=== PATIENT | female | born 1995 | race Caucasian/White ===

== ENCOUNTER 2016-08-20 03:45 | Emergency (ER) | payer OTHER ==
--- NOTE | 2016-08-20 05:44 | ED NURSING NOTES ---
Clinical Report - Nurses [facility] [place] [address] 08/20/2016 3:45 Patient: ANIL GUPTA TRIAGE Triage time 03:54 Aug 20 2016. Acuity: LEVEL 3. Chief Complaint: (Headache, abdominal pain). SEPSIS SCREEN: Sepsis Screen: negative. Negative (no infection suspected/documented). DAXA COMA SCORE: Daxa Coma Scale: 15- eyes open spontaneously (4); best verbal response- oriented x 4 (5); best motor response- obeys commands (6). --03:59 Yara Johnston 03:54 08/20/16. BP: 120/81. HR: 75. RR: 20. O2 saturation: 100% on room air. Temp: 98.7 F (oral). Pain level now: 12/03. --03:59 Yara Johnston. Weight: 61.2 kg stated. Height/Length: 62 inches Per Patient. BMI: 24.7. --03:56 Yara Johnston. Medications None. --03:57 Yara Johnston. Allergies No Known Drug Allergy. --03:57 Yara Johnston. Medication/allergy information source: the patient. --03:59 Yara Johnston. History Arrived by private vehicle. Historian: patient. Accompanied by family. Primary physician (none). Onset. (1 months). ( Patient reports headache for about three weeks. She reports a history of headaches. She reports she has not seen a doctor about it. She states that yesterday she began having abdominal pain. She states she has a family history of serious health problems including stroke and heart failure.). PAST MEDICAL HX: Immunizations: status is unknown. Last normal menstrual period- Spotting earlier this month. Sexual history - sexually active. Uses condoms. SOCIAL HX: Heavy tobacco smoker (cigarette)- 1 pack per day. History of drug use: marijuana. No alcohol use. No infectious disease exposure. ABUSE ASSESSMENT: No report of abuse. SELF HARM ASSESSMENT: A self harm assessment was performed. The patient answered "no" to the question "Have you recently felt down, depressed, or hopeless?", "Have you noticed less interest or pleasure in doing things?", "Do you have thoughts of harming or killing yourself?", "Are you here because you tried to hurt yourself?", "Have you ever tried to hurt yourself before today?", "Have you recently had thoughts about harming or killing others?" and "Do you have any dangerous items in your possession?". FALL RISK ASSESSMENT: Fall risk assessment completed. No fall risk identified. NUTRITIONAL RISK ASSESSMENT: The nutritional risk assessment revealed no deficiencies. FUNCTIONAL ASSESSMENT: Functional assessment: no impairments noted. LEARNING NEEDS ASSESSMENT: The learning needs assessment revealed no barriers. SKIN INTEGRITY ASSESSMENT: Skin integrity risk assessment completed. No skin integrity risk identified. --03:59 Yara Johnston. PROBLEMS: Lymphadenitis. Cervical Strain. Allergic Reaction. --03:57 Yara Johnston. ADDITIONAL SURGERIES: no known surgeries. Interventions ID band on patient. To treatment room. --03:59 Yara Johnston. PHYSICAL ASSESSMENT Ambulatory to room. Patient gowned. GENERAL / NEURO / PSYCH: Alert. Oriented X 4. Appears in no acute distress. HEENT: Pupils equal, round and reactive to light. No facial asymmetry noted. Mucous membranes are pink. RESPIRATORY: Respirations not labored. CVS: Normal sinus rhythm noted. GI / : Abdominal tenderness in the lower abdomen. SKIN: Skin is warm and dry. --03:59 Yara Johnston. NURSING PROGRESS NOTES Pulse oximeter and NIBP monitor placed on patient; monitor alarms on. Patient gowned. Warming measures: blanket applied. Reassurance given to the patient. Lights dimmed. Two patient identifiers checked. Call light placed in reach. Side rails up x 1. Bed placed in lowest position. Brakes of bed on. Patient ready for evaluation- chart flagged. --04:00 Yara Johnston 04:28 08/20/2016 Site #1 started via IV in the right antecubital space with an 20g angiocath, with aseptic technique and good blood return; one attempt. Blood drawn: rainbow set. Labeled in the presence of the patient and sent to the lab. Saline lock flushed with 10 mL saline. --04:33 Yara Johnston 04:33 08/20/2016 Started bag #1 1000 mL IV Fluids IV NS (Saline); at 1000 mL/hr over 1 hour(s) via site #1. Allergies verified and confirmed 5 rights. IV patency established. IV site checked: no pain, redness, or swelling. IV flushed thoroughly pre- and post-medication administration. --04:33 Yara Johnston 04:34 08/20/2016 Toradol IVP 30 mg given over 1 minute(s) via site #1. Allergies verified and confirmed 5 rights. IV patency established. IV site checked: no pain, redness, or swelling. IV flushed thoroughly pre- and post-medication administration. IVP given by RN. --04: Yara Johnston Patient ID band checked for patient name and birthdate: patient confirmed. Instructions provided to collect clean catch urine and patient verbalized understanding. Clean catch urine collected with return of yellow-colored clear urine; sample sent to lab for urinalysis. Specimen labeled in the presence of the patient. --05:08 Yara Johnston 06:03 08/20/2016 IV Fluids IV NS Discontinued: bag #1 completed upon discharge. Total amount infused: 1000 mL. IV patency established. IV site checked: no pain, redness, or swelling. IV flushed thoroughly. --06:08 Yara Johnston. DISPOSITION / DISCHARGE 06:02 08/20/16. BP: 111/74. HR: 66. RR: 20. O2 saturation: 100% on room air. Temp: deferred. Pain level now: 09/02. --06:03 Yara Johnston 05:58 08/20/2016 Site #1 removed upon discharge. Catheter intact. Bandaid applied. --06:03 Yara Johnston 06:03 08/20/16. Condition at departure: improved and stable. No learning barriers present. Discharge instructions provided and reviewed with the patient. Reviewed medication(s) side effects, precautions, dosing and course information. Prescription(s) given to the patient. Reviewed need for increased fluid intake. Patient verbalized understanding. Written instructions provided in Setswana. ( Follow up with a primary care doctor in three days, [facility] contact information provided. Return if symptoms worsen.). The patient was discharged by the physician. She was discharged home and accompanied by surgical specialist. She left the Emergency Department ambulatory and via private vehicle. Family Services Worker driving. --06:03 Yara Johnston. Locked/Released at 08/20/2016 6:44 by Yara Johnston,
--- NOTE | 2016-08-20 05:44 | ED ORDER SUMMARY ---
..... Patient: ANIL GUPTA OrderSheet [facility] VisitID: [id number] [address] [place] [address] 21y, F Registration Date/Time: 08/20/2016 ORDER SHEET Weight: 61.2 kg (stated) Allergies: No Known Drug Allergy GENERAL ORDERS: CBC w Diff Urgent (04:08/20/2016 Paul Suacedo) (Ack 4:19 IJurca ER Tech1) (5:36 HSoule) CMP Urgent (04:08/20/2016 Paul Saucedo) (Ack 4:19 IJurca ER Tech1) (5:36 HSoule) UA-Culture if indicated Urgent (04:08/20/2016 Paul Saucedo) (Ack 4:19 IJurca ER Tech1) (5:36 HSoule) Amylase Urgent (04:08/20/2016 Paul Saucedo) (Ack 4:19 IJurca ER Tech1) (5:36 HSoule) Lipase Urgent (04:08/20/2016 Paul Saucedo) (Ack 4:19 IJurca ER Tech1) (5:36 HSoule) Urine Urgent (04:08/20/2016 Paul Saucedo) (Ack 4:19 IJurca ER Tech1) (5:36 HSoule) MEDICATION ORDERS: IV FLUIDS: IV NS : initial bolus none -, then 1000 mL/hr for X1 (NOW) (04:08/20/2016 Paul Saucedo) (Ack 4:20 HSoule) (4:33 HSoule) Toradol IV 30 mg (NOW) (04:08/20/2016 Paul Saucedo) (Ack 4:20 HSoule) (4:34 HSoule) ORDER SHEET NOTES: This document has not been locked and should not be saved in the medical record.
--- NOTE | 2016-08-20 05:44 | ED CLINICAL REPORT ---
Clinical Report - Physicians/Mid Levels [facility] [address] [place] [address] 08/20/2016 3:45 Patient: ANIL GUPTA *This is a preliminary document and is subject to change Time Seen: 04:02; initial patient contact. Arrived- By private vehicle. Historian- patient. HISTORY OF PRESENT ILLNESS Is still present. Chief Complaint: HEADACHE. This started about 1 month ago. It was gradual in onset and has been intermittent. Onset during light activity. It is described as similar to previous headaches and throbbing. Located in the frontal and occipital region. No neck pain. Not located in the facial region. At its maximum, severity described as mild. When seen in the E.D., severity described as mild. Modifying factors: worsened by moving head; relieved by nothing. No preceding symptoms, blurred vision, photophobia, associated nausea or numbness. No weakness or vomiting. No recent travel. Similar symptoms previously: Many times. Recent medical care: Not recently seen/assessed. REVIEW OF SYSTEMS No fever, sinus pressure, diarrhea or skin rash. She has had abdominal pain. All systems otherwise negative, except as recorded above. PAST HISTORY Lymphadenitis. Cervical Strain. Allergic Reaction. SOCIAL HISTORY Current every day smoker. History of drug use: marijuana. No alcohol use. ADDITIONAL NOTES The nursing notes have been reviewed with agreement regarding the chief complaint, PMH and patient medications and allergies. PHYSICAL EXAM Vital Signs: 08/20/2016 03:54 BP: 120/81. HR: 75. RR: 20. O2 saturation: 100%. Temp: 98.7 F. Pain level now: 6/10. Have been reviewed as normal. Appearance: Alert. No acute distress. Eyes: Pupils equal, round and reactive to light. Eyes normal inspection. No photophobia. ENT: Dry mucous membranes present. Neck: Normal inspection. Neck supple. No meningeal signs. CVS: Normal heart rate and rhythm. Heart sounds normal. Respiratory: No respiratory distress. Breath sounds normal. Abdomen: Soft. Mild tenderness in the periumbilical area and right lower quadrant. No guarding, rebound tenderness or Isabel's, obturator or psoas sign present. No organomegaly. Back: Normal inspection. No CVA tenderness. Skin: Normal skin color. No rash. Extremities: No lower extremity edema. Neuro: Oriented X 3. Alert. LABS, X-RAYS, AND EKG Laboratory Tests: UA-Culture if indicated: (KACEY: 08/20/2016 05:00) ( [facility] 08/20/2016 05:30) Final results Test Result Flag Units (Reference) URINE COLOR YELLOW URINE APPEARANCE CLEAR URINE GLUCOSE NEGATIVE (NEGATIVE) URINE BILIRUBIN NEGATIVE (NEGATIVE) URINE KETONE 2+ (NEGATIVE) URINE SPECIFIC GRAVITY 1.015 (1.010-1.030) URINE PH 6.0 (5.0-8.0) URINE PROTEIN NEGATIVE (NEGATIVE) URINE UROBILINOGEN 0.2 EU/dL (0.2-1.0) URINE NITRITE NEGATIVE (NEGATIVE) URINE BLOOD TRACE-INTACT (NEGATIVE) URINE LEUK ESTERASE NEGATIVE (NEGATIVE) URINE RBC 0-1 rbc/hpf (0-1) URINE WBC 0-1 wbc/hpf (0-1) URINE EPITHELIAL CELLS 1-3 EPI/hpf (0-5) URINE BACTERIA TRACE (<1+) (NONE SEEN) URINE COMMENT CULT NOT INDICATED URINE CULTURES ARE SET-UP BASED ON THE FOLLOWING CRITERIA:POSITIVE NITRITEPOSITIVE LEUKOCYTE ESTERASEGREATER THAN 10 WHITE BLOOD CELLSMODERATE (2+) OR GREATER BACTERIA Urine: (KACEY: 08/20/2016 05:00) ( [facility] 08/20/2016 05:18) Final results Test Result Flag Units (Reference) URINE NEGATIVE CBC w Diff: (KACEY: 08/20/2016 04:30) ( [facility] 08/20/2016 05:12) Final results Test Result Flag Units (Reference) WHITE BLOOD COUNT 7.5 K/uL (4.5-11.5) RED BLOOD COUNT 3.93 L M/uL (4.00-5.20) HEMOGLOBIN 11.2 L gm/dL (12.0-16.0) HEMATOCRIT 34.1 L % (36.0-46.0) MEAN CELL VOLUME 87 fL (80-100) MEAN CORPUSCULAR HGB 29 pg (26-34) MEAN CORPUSCULAR HGB CONC 33 g/dL (31-37) RED CELL DISTRIBUTION WIDTH 14.2 % (11.6-14.8) PLATELET COUNT 125 L K/uL (150-400) NEUTROPHIL % 56.4 % (50-75) LYMPH % 33.1 % (25-40) MONO % 6.8 % (3-14) EOSINOPHIL % 3.3 % (0-4) BASOPHIL % 0.4 % (0-2) CMP: (KACEY: 08/20/2016 04:30) ( MsgRcvd 08/20/2016 05:22) Final results Test Result Flag Units (Reference) GLUCOSE 81 mg/dL (70-110) BUN 18 mg/dL (7-18) CREATININE 0.8 mg/dL (0.6-1.3) Estimated GFR >60 mL/min Estimated GFR- >60 mL/min Note: Persistent reduction over 3 months in eGFR<60 mL/min/1.73 m2 defines CKD. Patients with eGFR values>=60 mL/min/1.73 m2 may also have CKD if evidence ofpersistent proteinuria. Additional information may be foundat www.kidney.org. SODIUM 141 mmol/L (136-145) POTASSIUM 3.5 mmol/L (3.5-5.1) CHLORIDE 105 mmol/L (98-107) CARBON DIOXIDE 24 mmol/L (21-32) CALCIUM 8.9 mg/dL (8.5-10.1) TOTAL PROTEIN 7.3 g/dL (6.4-8.2) ALBUMIN 3.8 g/dL (3.3-5.0) BILIRUBIN, TOTAL 0.6 mg/dL (0.0-1.0) ALKALINE PHOSPHATASE 63 U/L (46-116) AST (SGOT) 13 L U/L (15-37) ALT (SGPT) 16 U/L (12-78) LIPASE 170 U/L (73-393) AMYLASE 65 U/L (25-115) . [address]
--- NOTE | 2016-08-20 05:44 | ED CLINICAL REPORT ---
Clinical Report - Physicians/Mid Levels [facility] [address] [place] [address] 08/20/2016 3:45 Patient: ANIL GUPTA *This is a preliminary document and is subject to change Time Seen: 04:02; initial patient contact. Arrived- By private vehicle. Historian- patient. HISTORY OF PRESENT ILLNESS Is still present. Chief Complaint: HEADACHE. This started about 1 month ago. It was gradual in onset and has been intermittent. Onset during light activity. It is described as similar to previous headaches and throbbing. Located in the frontal and occipital region. No neck pain. Not located in the facial region. At its maximum, severity described as mild. When seen in the E.D., severity described as mild. Modifying factors: worsened by moving head; relieved by nothing. No preceding symptoms, blurred vision, photophobia, associated nausea or numbness. No weakness or vomiting. No recent travel. Similar symptoms previously: Many times. Recent medical care: Not recently seen/assessed. REVIEW OF SYSTEMS No fever, sinus pressure, diarrhea or skin rash. She has had abdominal pain. All systems otherwise negative, except as recorded above. PAST HISTORY Lymphadenitis. Cervical Strain. Allergic Reaction. SOCIAL HISTORY Current every day smoker. History of drug use: marijuana. No alcohol use. ADDITIONAL NOTES The nursing notes have been reviewed with agreement regarding the chief complaint, PMH and patient medications and allergies. PHYSICAL EXAM Vital Signs: 08/20/2016 03:54 BP: 120/81. HR: 75. RR: 20. O2 saturation: 100%. Temp: 98.7 F. Pain level now: 6/10. Have been reviewed as normal. Appearance: Alert. No acute distress. Eyes: Pupils equal, round and reactive to light. Eyes normal inspection. No photophobia. ENT: Dry mucous membranes present. Neck: Normal inspection. Neck supple. No meningeal signs. CVS: Normal heart rate and rhythm. Heart sounds normal. Respiratory: No respiratory distress. Breath sounds normal. Abdomen: Soft. Mild tenderness in the periumbilical area and right lower quadrant. No guarding, rebound tenderness or Isabel's, obturator or psoas sign present. No organomegaly. Back: Normal inspection. No CVA tenderness. Skin: Normal skin color. No rash. Extremities: No lower extremity edema. Neuro: Oriented X 3. Alert. LABS, X-RAYS, AND EKG Laboratory Tests: UA-Culture if indicated: (KACEY: 08/20/2016 05:00) ( [facility] 08/20/2016 05:30) Final results Test Result Flag Units (Reference) URINE COLOR YELLOW URINE APPEARANCE CLEAR URINE GLUCOSE NEGATIVE (NEGATIVE) URINE BILIRUBIN NEGATIVE (NEGATIVE) URINE KETONE 2+ (NEGATIVE) URINE SPECIFIC GRAVITY 1.015 (1.010-1.030) URINE PH 6.0 (5.0-8.0) URINE PROTEIN NEGATIVE (NEGATIVE) URINE UROBILINOGEN 0.2 EU/dL (0.2-1.0) URINE NITRITE NEGATIVE (NEGATIVE) URINE BLOOD TRACE-INTACT (NEGATIVE) URINE LEUK ESTERASE NEGATIVE (NEGATIVE) URINE RBC 0-1 rbc/hpf (0-1) URINE WBC 0-1 wbc/hpf (0-1) URINE EPITHELIAL CELLS 1-3 EPI/hpf (0-5) URINE BACTERIA TRACE (<1+) (NONE SEEN) URINE COMMENT CULT NOT INDICATED URINE CULTURES ARE SET-UP BASED ON THE FOLLOWING CRITERIA:POSITIVE NITRITEPOSITIVE LEUKOCYTE ESTERASEGREATER THAN 10 WHITE BLOOD CELLSMODERATE (2+) OR GREATER BACTERIA Urine: (KACEY: 08/20/2016 05:00) ( [facility] 08/20/2016 05:18) Final results Test Result Flag Units (Reference) URINE NEGATIVE CBC w Diff: (KACEY: 08/20/2016 04:30) ( [facility] 08/20/2016 05:12) Final results Test Result Flag Units (Reference) WHITE BLOOD COUNT 7.5 K/uL (4.5-11.5) RED BLOOD COUNT 3.93 L M/uL (4.00-5.20) HEMOGLOBIN 11.2 L gm/dL (12.0-16.0) HEMATOCRIT 34.1 L % (36.0-46.0) MEAN CELL VOLUME 87 fL (80-100) MEAN CORPUSCULAR HGB 29 pg (26-34) MEAN CORPUSCULAR HGB CONC 33 g/dL (31-37) RED CELL DISTRIBUTION WIDTH 14.2 % (11.6-14.8) PLATELET COUNT 125 L K/uL (150-400) NEUTROPHIL % 56.4 % (50-75) LYMPH % 33.1 % (25-40) MONO % 6.8 % (3-14) EOSINOPHIL % 3.3 % (0-4) BASOPHIL % 0.4 % (0-2) CMP: (KACEY: 08/20/2016 04:30) ( MsgRcvd 08/20/2016 05:22) Final results Test Result Flag Units (Reference) GLUCOSE 81 mg/dL (70-110) BUN 18 mg/dL (7-18) CREATININE 0.8 mg/dL (0.6-1.3) Estimated GFR >60 mL/min Estimated GFR- >60 mL/min Note: Persistent reduction over 3 months in eGFR<60 mL/min/1.73 m2 defines CKD. Patients with eGFR values>=60 mL/min/1.73 m2 may also have CKD if evidence ofpersistent proteinuria. Additional information may be foundat www.kidney.org. SODIUM 141 mmol/L (136-145) POTASSIUM 3.5 mmol/L (3.5-5.1) CHLORIDE 105 mmol/L (98-107) CARBON DIOXIDE 24 mmol/L (21-32) CALCIUM 8.9 mg/dL (8.5-10.1) TOTAL PROTEIN 7.3 g/dL (6.4-8.2) ALBUMIN 3.8 g/dL (3.3-5.0) BILIRUBIN, TOTAL 0.6 mg/dL (0.0-1.0) ALKALINE PHOSPHATASE 63 U/L (46-116) AST (SGOT) 13 L U/L (15-37) ALT (SGPT) 16 U/L (12-78) LIPASE 170 U/L (73-393) AMYLASE 65 U/L (25-115) . [address]
--- NOTE | 2016-08-20 05:44 | ED ORDER SUMMARY ---
..... Patient: ANIL GUPTA OrderSheet [facility] VisitID: [id number] [address] [place] [address] 21y, F Registration Date/Time: 08/20/2016 ORDER SHEET Weight: 61.2 kg (stated) Allergies: No Known Drug Allergy GENERAL ORDERS: CBC w Diff Urgent (04:08/20/2016 Paul Saucedo) (Ack 4:19 IJurca ER Tech1) (5:36 HSoule) CMP Urgent (04:08/20/2016 Paul aSucedo) (Ack 4:19 IJurca ER Tech1) (5:36 HSoule) UA-Culture if indicated Urgent (04:08/20/2016 Paul Saucedo) (Ack 4:19 IJurca ER Tech1) (5:36 HSoule) Amylase Urgent (04:08/20/2016 Paul Saucedo) (Ack 4:19 IJurca ER Tech1) (5:36 HSoule) Lipase Urgent (04:08/20/2016 Paul Saucedo) (Ack 4:19 IJurca ER Tech1) (5:36 HSoule) Urine Urgent (04:08/20/2016 Paul Saucedo) (Ack 4:19 IJurca ER Tech1) (5:36 HSoule) MEDICATION ORDERS: IV FLUIDS: IV NS : initial bolus none -, then 1000 mL/hr for X1 (NOW) (04:08/20/2016 Paul Saucedo) (Ack 4:20 HSoule) (4:33 HSoule) Toradol IV 30 mg (NOW) (04:08/20/2016 Paul Saucedo) (Ack 4:20 HSoule) (4:34 HSoule) ORDER SHEET NOTES: This document has not been locked and should not be saved in the medical record.
--- NOTE | 2016-08-23 22:19 | ED MAR SUMMARY ---
..... Medication Administration Record [facility] [address] [place] [address] Patient: ANIL GUPTA Visit ID: [id number] 21y, F Weight: 61.2 kg Height/Length: 62 in BMI: 24.7 ALLERGIES: No Known Drug Allergy Start 04:33 08/20/2016 Yara Johnston,, Stop 06:03 08/20/2016 Yara Johnston, Medication Administered: IV NS (SALINE), Dose: IV Fluids over 1 hour(s), Rate: 1000 mL/hr, Dispensed: 1000 mL bag, Site: #1 right AC. Medication Ordered: IV NS : initial bolus none -, then 1000 mL/hr for X1 (NOW). Given 04:34 08/20/2016 Yara Johnston, Medication Administered: TORADOL [IVP], Dose: 30 mg IVP over 1 minute(s), Site: #1 right AC. Medication Ordered: Toradol IV 30 mg (NOW).
--- NOTE | 2016-08-23 22:19 | ED DISCHARGE INSTRUCTIONS ---
Patient: ANIL GUPTA General Instructions [facility] VisitID: [id number] [address] [place] [address] 21y, F Registration Date/Time: 08/20/2016 Episodic tension-type headache poorly controlled. Acute suprapubic and left lower quadrant abdominal pain. INSTRUCTIONS Prescription Medications: Baclofen 10 mg: take 1 orally every 8 hours. Dispense twenty (20). No refills. Diclofenac 50 mg tablets: take 1 tablet orally every 6 hours as needed for pain or stiffness. Dispense thirty (30). No refill. Follow-up: Screening today revealed the patient's blood pressure to be in the pre-hypertensive range. The patient should follow up with a primary care provider for blood pressure management. Follow-up with: [facility], , [address] [place] [address], [address], [place] [address] Follow up in about three days. Call for an appointment. ADDITIONAL INFORMATION Tension Headache Muscle Tension Headache (also called "stress headache") is a very common cause of head pain. Under stress, some people tense the muscles of their shoulder, neck and scalp without knowing it. If this lasts long enough, a headache can occur. These headaches can be very painful and last for hours or even days. Home Care: If you were given pain medicine for this headache, do not drive yourself home. Arrange for a ride, instead. When you get home, try to sleep. You should feel much better when you wake up. Heat to the back of your neck may relieve neck spasm. Drink only clear liquids or eat a very light diet to avoid nausea/vomiting until symptoms improve. Preventing Future Headaches Identify the sources of stress in your life. These may not be obvious! Learn new ways to handle your stress, such as regular exercise, biofeedback, self-hypnosis and meditation. For more information about this, consult your doctor or go to a local bookstore and review the many books and tapes on this subject. At the first sign of a tension headache, take time out if possible. Remove yourself from the stressful situation, find a quiet comfortable place to sit or lie down and let yourself relax. Heat and deep massage of the tight areas in the neck and shoulders may help reduce muscle spasm. Medicine, such as ibuprofen (Advil or Motrin) or a prescribed muscle relaxant may be helpful at this point. Follow Up with your doctor if the headache is not better within the next 24 hours. If you have frequent headaches you should discuss a treatment plan with your primary care doctor. Ask if you can have medicine to take at home the next time you get a bad headache. This may avoid the need for a visit to the emergency department in the future. Poorly controlled chronic headaches may require a referral to a neurologist (headache specialist). Get Prompt Medical Attention if any of the following occur: Worsening of your head pain or no improvement within 24 hours Repeated vomiting (unable to keep liquids down) Fever of 100.4F (38C) or higher, or as directed by your healthcare provider Stiff neck Extreme drowsiness, confusion or fainting Dizziness, vertigo (dizziness with spinning sensation) Weakness of an arm or leg or one side of the face Difficulty with speech or vision Abdominal Pain, Unknown Cause (Female) The exact cause of your abdominal (stomach) pain is not certain. This does not mean that this is something to worry about, or the right tests were not done. Everyone likes to know the exact cause of the problem, but sometimes with abdominal pain, there is no clear-cut cause, and this could be a good thing. The good news is that your symptoms can be treated, and you will feel better. Your condition does not seem serious now; however, sometimes the signs of a serious problem may take more time to appear. For this reason,it is important for you to watch for any new symptoms, problems,or worsening of your condition. Over the next few days, the abdominal pain may come and go, or be continuous. Other common symptoms can include nausea and vomiting. Sometimes it can be difficult to tell if you feel nauseous, you may just feel bad and not associate that feeling with nausea. Constipation, diarrhea, and a fever may go along with the pain. The pain may continue even if treated correctly over the following days. Depending on how things go, sometimes the cause can become clear and may require further or different treatment. Additional evaluations, medications, or tests may be needed. Home care Your health care provider may prescribe medications for pain, symptoms, or an infection. Follow the health care provider's instructions for taking these medications. General care Rest until your next exam. No strenuous activities. Try to find positions that ease discomfort. A small pillow placed on the abdomen may help relieve pain. Something warm on your abdomen (such as a heating pad) may help, but be careful not to burn yourself. Diet Do not force yourself to eat, especially if having cramps, vomiting, or diarrhea. Water is important so you do not get dehydrated. Soup may also be good. Sports drinks may also help, especially if they are not too acidic. Make sure you don't drink sugary drinks as this can make things worse. Take liquids in small amounts. Do not guzzle them. Caffeine sometimes makes the pain and cramping worse. Avoid dairy products if you have vomiting or diarrhea. Don't eat large amounts at a time. Wait a few minutes between bites. Eat a diet low in fiber (called a low-residue diet). Foods allowed include refined breads, white rice, fruit and vegetable juices without pulp, tender meats. These foods will pass more easily through the intestine. Avoid whole-grain foods, whole fruits and vegetables, meats, seeds and nuts, fried or fatty foods, dairy, alcohol and spicy foods until your symptoms go away. Follow-up care Follow up with your health care provider as instructed, or if your pain does not begin to improve in the next 24 hours. When to seek medical care Seek prompt medical care if any of the following occur: Pain gets worse or moves to the right lower abdomen New or worsening vomiting or diarrhea Swelling of the abdomen Unable to pass stool for more than three days Fever of 100.4F (38C) or higher, or as directed by your healthcare provider. Blood in vomit or bowel movements (dark red or black color) Jaundice (yellow color of eyes and skin) Weakness, dizziness Chest, arm, back, neck or jaw pain Unexpected vaginal bleeding or missed period Call 911 Call emergency services if any of the following occur: Trouble breathing Confusion Fainting or loss of consciousness Rapid heart rate Seizure You have been given the following additional information: Headache, Tension Abdominal Pain, Unknown Cause, (Female) (Electronically signed by Dre Galan Dr. 08/23/2016 22:19)
--- NOTE | 2016-08-23 22:19 | ED MED RECONCILIATION SUMMARY ---
Patient: ANIL GUPTA Medication Reconciliation Report [facility] VisitID: [id number] [address] [place] [address] 21y, F Registration Date/Time: 08/20/2016 Weight: 61.2 kg Height/Length: 62 in. BMI: 24.7 ALLERGIES: No Known Drug Allergy The patient's Home Medications are listed below: NONE. The source(s) of the original Home Medication information: patient The following Medications were given to the patient in the Emergency Department: IV NS IV Fluids bolus 0, then 1000 mL/hr, administered: 08/20/2016 4:33:00 AM Toradol [IVP] IVP 30 mg, administered: 08/20/2016 4:34:00 AM The following Medications were prescribed to the patient: Baclofen 10 mg: take 1 orally every 8 hours. Dispense twenty (20). No refills. -- Dre Galan Dr. Diclofenac 50 mg tablets: take 1 tablet orally every 6 hours as needed for pain or stiffness. Dispense thirty (30). No refill. -- Dre Galan Dr.
--- NOTE | 2016-08-23 22:19 | ED MAR SUMMARY ---
..... Medication Administration Record [facility] [address] [place] [address] Patient: ANIL GUPTA Visit ID: [id number] 21y, F Weight: 61.2 kg Height/Length: 62 in BMI: 24.7 ALLERGIES: No Known Drug Allergy Start 04:33 08/20/2016 Yara Johnston,, Stop 06:03 08/20/2016 Yara Johnston, Medication Administered: IV NS (SALINE), Dose: IV Fluids over 1 hour(s), Rate: 1000 mL/hr, Dispensed: 1000 mL bag, Site: #1 right AC. Medication Ordered: IV NS : initial bolus none -, then 1000 mL/hr for X1 (NOW). Given 04:34 08/20/2016 Yara Johnston, Medication Administered: TORADOL [IVP], Dose: 30 mg IVP over 1 minute(s), Site: #1 right AC. Medication Ordered: Toradol IV 30 mg (NOW).
--- NOTE | 2016-08-23 22:19 | ED MED RECONCILIATION SUMMARY ---
Patient: ANIL GUPTA Medication Reconciliation Report [facility] VisitID: [id number] [address] [place] [address] 21y, F Registration Date/Time: 08/20/2016 Weight: 61.2 kg Height/Length: 62 in. BMI: 24.7 ALLERGIES: No Known Drug Allergy The patient's Home Medications are listed below: NONE. The source(s) of the original Home Medication information: patient The following Medications were given to the patient in the Emergency Department: IV NS IV Fluids bolus 0, then 1000 mL/hr, administered: 08/20/2016 4:33:00 AM Toradol [IVP] IVP 30 mg, administered: 08/20/2016 4:34:00 AM The following Medications were prescribed to the patient: Baclofen 10 mg: take 1 orally every 8 hours. Dispense twenty (20). No refills. -- Dre Galan Dr. Diclofenac 50 mg tablets: take 1 tablet orally every 6 hours as needed for pain or stiffness. Dispense thirty (30). No refill. -- Dre Galan Dr.
== END 2016-08-20 06:00 | disposition home or self-care (01) ==
LOC: ED SRH 03:45
DX: G44.211 Episodic tension-type headache, intractable (principal); R10.32 Left lower quadrant pain; R10.2 Pelvic and perineal pain; F17.210 Nicotine dependence, cigarettes, uncomplicated
CPT/HCPCS: 90004; 90100; 92235; 92530; 93070; 95059

== ENCOUNTER 2016-08-29 17:45 | Emergency (ER) | payer OTHER ==
--- NOTE | 2016-08-29 19:35 | ED CLINICAL REPORT ---
Clinical Report - Physicians/Mid Levels [facility] [address] [place] [address] 08/29/2016 17:46 Patient: ANIL GUPTA Time Seen: 17:52. Arrived- By private vehicle. Historian- patient. HISTORY OF PRESENT ILLNESS Chief Complaint: ABDOMINAL PAIN. It is described as "pain" and it is described as located in the left lower quadrant and the left flank. This started yesterday and is still present. It was gradual in onset and has been constant. The patient has had nausea. No loss of appetite, vomiting or diarrhea. REVIEW OF SYSTEMS Last normal menstrual period was 2 weeks ago. She has had severe pain on urination (several days ago). It has occurred during and after urination and been associated with urgency and frequency. No calf pain, chest pain, cough, difficulty breathing or pedal edema. No palpitations, black stools, bloody stools, diarrhea or vomiting. She has had mild constipation (chronically). She has had similar symptoms previously. She has had nausea. All systems otherwise negative, except as recorded above. PAST HISTORY PCP - None. SOCIAL HISTORY Heavy tobacco smoker- 1 pack per day. History of occasional drug use: marijuana. No alcohol use. Residence: [place]. FAMILY HISTORY Cancer in first-degree relative (mother). ADDITIONAL NOTES The nursing notes have been reviewed. PHYSICAL EXAM Vital Signs: 08/29/2016 18:00 BP: 104/68. HR: 71. RR: 18. O2 saturation: 99%. Temp: 98.3 F. Pain level now: 6/10. Have been reviewed. Appearance: Alert. Eyes: Pupils equal, round and reactive to light. ENT: Pharynx normal. Neck: Normal inspection. CVS: Normal heart rate and rhythm. Heart sounds normal. Respiratory: No respiratory distress. Breath sounds normal. Abdomen: Soft and nontender. Bowel sounds normal. No organomegaly. No mass. Back: Normal inspection. Moderate CVA tenderness on the left. Skin: Skin warm and dry. Normal skin color. Normal skin turgor. Extremities: No calf tenderness. Neuro: No motor deficit. No sensory deficit. LABS, X-RAYS, AND EKG Laboratory Tests: UA-Culture if indicated: (KACEY: 08/29/2016 18:10) ( [facility] 08/29/2016 18:47) Final results Test Result Flag Units (Reference) URINE COLOR YELLOW URINE APPEARANCE CLOUDY URINE GLUCOSE NEGATIVE (NEGATIVE) URINE BILIRUBIN NEGATIVE (NEGATIVE) URINE KETONE 1+ (NEGATIVE) URINE SPECIFIC GRAVITY 1.025 (1.010-1.030) URINE PH 6.0 (5.0-8.0) URINE PROTEIN 2+ (NEGATIVE) URINE UROBILINOGEN 0.2 EU/dL (0.2-1.0) URINE NITRITE POSITIVE (NEGATIVE) URINE BLOOD 3+ (NEGATIVE) URINE LEUK ESTERASE POSITIVE (NEGATIVE) URINE RBC NONE SEEN rbc/hpf (0-1) URINE WBC TNTC wbc/hpf (0-1) URINE EPITHELIAL CELLS 0-1 EPI/hpf (0-5) URINE BACTERIA MODERATE (2+ TO 3+) (NONE SEEN) URINE COMMENT CULTURE INDICATED URINE CULTURES ARE SET-UP BASED ON THE FOLLOWING CRITERIA:POSITIVE NITRITEPOSITIVE LEUKOCYTE ESTERASEGREATER THAN 10 WHITE BLOOD CELLSMODERATE (2+) OR GREATER BACTERIA Urine: (KACEY: 08/29/2016 18:10) ( [facility] 08/29/2016 18:42) Final results Test Result Flag Units (Reference) URINE NEGATIVE CBC w Diff: (KACEY: 08/29/2016 18:15) ( [facility] 08/29/2016 18:41) Final results Test Result Flag Units (Reference) WHITE BLOOD COUNT 11.9 H K/uL (4.5-11.5) RED BLOOD COUNT 4.53 M/uL (4.00-5.20) HEMOGLOBIN 12.8 gm/dL (12.0-16.0) HEMATOCRIT 38.7 % (36.0-46.0) MEAN CELL VOLUME 85 fL (80-100) MEAN CORPUSCULAR HGB 28 pg (26-34) MEAN CORPUSCULAR HGB CONC 33 g/dL (31-37) RED CELL DISTRIBUTION WIDTH 13.6 % (11.6-14.8) PLATELET COUNT 147 L K/uL (150-400) NEUTROPHIL % 84.9 H % (50-75) LYMPH % 7.3 L % (25-40) MONO % 7.6 % (3-14) EOSINOPHIL % 0.1 % (0-4) BASOPHIL % 0.1 % (0-2) . PROGRESS AND PROCEDURES Course of Care: Patient is stable. Patient/family counseled. Old medical records reviewed. Disposition: Discharged. Condition: stable. CLINICAL IMPRESSION Acute pyelonephritis INSTRUCTIONS No driving or operating machinery while taking medication. Do not work until released. Drink plenty of fluids. Warnings: Further evaluation is necessary. GENERAL WARNINGS: Return or contact your physician immediately if your condition worsens or changes unexpectedly, if not improving as expected, or if other problems arise. Prescription Medications: Hydrocodone/APAP 5mg / 325mg: take 1-2 orally every 6 hours. Dispense fifteen (15). No refill. Cipro 500 mg: take 1 tab orally every 12 hours for 10 days. No refills. Substitution is permissible. (18 pills to finish the course started in the emergency room. Begin this on the evening of 08/30/2016) Understanding of the discharge instructions verbalized by patient. Follow-up with: [facility], , , [address], , [place], [address] Follow up in four. Call for the next available appointment. (Electronically signed by Ricardo Russo MD 08/30/2016 9:30)
--- NOTE | 2016-08-29 19:35 | ED CLINICAL REPORT ---
Clinical Report - Physicians/Mid Levels [facility] [address] [place] [address] 08/29/2016 17:46 Patient: ANIL GUPTA Time Seen: 17:52. Arrived- By private vehicle. Historian- patient. HISTORY OF PRESENT ILLNESS Chief Complaint: ABDOMINAL PAIN. It is described as "pain" and it is described as located in the left lower quadrant and the left flank. This started yesterday and is still present. It was gradual in onset and has been constant. The patient has had nausea. No loss of appetite, vomiting or diarrhea. REVIEW OF SYSTEMS Last normal menstrual period was 2 weeks ago. She has had severe pain on urination (several days ago). It has occurred during and after urination and been associated with urgency and frequency. No calf pain, chest pain, cough, difficulty breathing or pedal edema. No palpitations, black stools, bloody stools, diarrhea or vomiting. She has had mild constipation (chronically). She has had similar symptoms previously. She has had nausea. All systems otherwise negative, except as recorded above. PAST HISTORY PCP - None. SOCIAL HISTORY Heavy tobacco smoker- 1 pack per day. History of occasional drug use: marijuana. No alcohol use. Residence: [place]. FAMILY HISTORY Cancer in first-degree relative (mother). ADDITIONAL NOTES The nursing notes have been reviewed. PHYSICAL EXAM Vital Signs: 08/29/2016 18:00 BP: 104/68. HR: 71. RR: 18. O2 saturation: 99%. Temp: 98.3 F. Pain level now: 6/10. Have been reviewed. Appearance: Alert. Eyes: Pupils equal, round and reactive to light. ENT: Pharynx normal. Neck: Normal inspection. CVS: Normal heart rate and rhythm. Heart sounds normal. Respiratory: No respiratory distress. Breath sounds normal. Abdomen: Soft and nontender. Bowel sounds normal. No organomegaly. No mass. Back: Normal inspection. Moderate CVA tenderness on the left. Skin: Skin warm and dry. Normal skin color. Normal skin turgor. Extremities: No calf tenderness. Neuro: No motor deficit. No sensory deficit. LABS, X-RAYS, AND EKG Laboratory Tests: UA-Culture if indicated: (KACEY: 08/29/2016 18:10) ( [facility] 08/29/2016 18:47) Final results Test Result Flag Units (Reference) URINE COLOR YELLOW URINE APPEARANCE CLOUDY URINE GLUCOSE NEGATIVE (NEGATIVE) URINE BILIRUBIN NEGATIVE (NEGATIVE) URINE KETONE 1+ (NEGATIVE) URINE SPECIFIC GRAVITY 1.025 (1.010-1.030) URINE PH 6.0 (5.0-8.0) URINE PROTEIN 2+ (NEGATIVE) URINE UROBILINOGEN 0.2 EU/dL (0.2-1.0) URINE NITRITE POSITIVE (NEGATIVE) URINE BLOOD 3+ (NEGATIVE) URINE LEUK ESTERASE POSITIVE (NEGATIVE) URINE RBC NONE SEEN rbc/hpf (0-1) URINE WBC TNTC wbc/hpf (0-1) URINE EPITHELIAL CELLS 0-1 EPI/hpf (0-5) URINE BACTERIA MODERATE (2+ TO 3+) (NONE SEEN) URINE COMMENT CULTURE INDICATED URINE CULTURES ARE SET-UP BASED ON THE FOLLOWING CRITERIA:POSITIVE NITRITEPOSITIVE LEUKOCYTE ESTERASEGREATER THAN 10 WHITE BLOOD CELLSMODERATE (2+) OR GREATER BACTERIA Urine: (KACEY: 08/29/2016 18:10) ( [facility] 08/29/2016 18:42) Final results Test Result Flag Units (Reference) URINE NEGATIVE CBC w Diff: (KACEY: 08/29/2016 18:15) ( [facility] 08/29/2016 18:41) Final results Test Result Flag Units (Reference) WHITE BLOOD COUNT 11.9 H K/uL (4.5-11.5) RED BLOOD COUNT 4.53 M/uL (4.00-5.20) HEMOGLOBIN 12.8 gm/dL (12.0-16.0) HEMATOCRIT 38.7 % (36.0-46.0) MEAN CELL VOLUME 85 fL (80-100) MEAN CORPUSCULAR HGB 28 pg (26-34) MEAN CORPUSCULAR HGB CONC 33 g/dL (31-37) RED CELL DISTRIBUTION WIDTH 13.6 % (11.6-14.8) PLATELET COUNT 147 L K/uL (150-400) NEUTROPHIL % 84.9 H % (50-75) LYMPH % 7.3 L % (25-40) MONO % 7.6 % (3-14) EOSINOPHIL % 0.1 % (0-4) BASOPHIL % 0.1 % (0-2) . PROGRESS AND PROCEDURES Course of Care: Patient is stable. Patient/family counseled. Old medical records reviewed. Disposition: Discharged. Condition: stable. CLINICAL IMPRESSION Acute pyelonephritis INSTRUCTIONS No driving or operating machinery while taking medication. Do not work until released. Drink plenty of fluids. Warnings: Further evaluation is necessary. GENERAL WARNINGS: Return or contact your physician immediately if your condition worsens or changes unexpectedly, if not improving as expected, or if other problems arise. Prescription Medications: Hydrocodone/APAP 5mg / 325mg: take 1-2 orally every 6 hours. Dispense fifteen (15). No refill. Cipro 500 mg: take 1 tab orally every 12 hours for 10 days. No refills. Substitution is permissible. (18 pills to finish the course started in the emergency room. Begin this on the evening of 08/30/2016) Understanding of the discharge instructions verbalized by patient. Follow-up with: [facility], , , [address], , [place], [address] Follow up in four. Call for the next available appointment. (Electronically signed by Ricardo Russo MD 08/30/2016 9:30)
--- NOTE | 2016-08-29 19:36 | ED ORDER SUMMARY ---
..... Patient: ANIL GUPTA OrderSheet [facility] VisitID: [id number] [place] [address] 21y, F Registration Date/Time: 08/29/2016 ORDER SHEET Weight: 61.2 kg (stated) Allergies: No Known Drug Allergy GENERAL ORDERS: CBC w Diff Urgent (18:11 08/29/2016 Jory CLAROS) (Ack 18:14 Magaly) (18:40 Chacha R.N.) CMP Urgent (18:11 08/29/2016 Jory CLAROS) (Ack 18:14 Magaly) (18:40 Chacha R.N.) UA-Culture if indicated Urgent (18:08/29/2016 Jory CLAROS) (18:13 Chacha R.N.) (Ack 18:14 Magaly) Amylase Urgent (18:08/29/2016 Jory CLAROS) (Ack 18:14 Magaly) (18:40 Chacha R.N.) Lipase Urgent (18:11 08/29/2016 Jory CLAROS) (Ack 18:14 Magaly) (18:40 Chacha R.N.) Urine Urgent (18:11 08/29/2016 Jory CLAROS) (18:13 Chacha R.N.) (Ack 18:14 Magaly) MEDICATION ORDERS: Levaquin PO 750 mg (NOW) (19:32 08/29/2016 Jory CLAROS) (Ack 19:35 DDean R.N.) (19:46 DDean R.N.) Hydrocodone-APAP PO 5/325 mg (NOW) (19:50 08/29/2016 DDean R.N. per protocol) (19:51 DDean R.N.) IV FLUIDS: IV Saline Lock (18:11 08/29/2016 Jory CLAROS) (Ack 18:13 Chacha R.N.) (18:40 Chacha R.N.) ORDER SHEET NOTES: [Electronically signed by Maki Cox R.N. (19:57 08/29/2016)] [Electronically signed by Ricardo Russo MD (09:30 08/30/2016)] [Electronically locked/signed by Maki Cox R.N. (19:57 08/29/2016)]
--- NOTE | 2016-08-29 19:36 | ED ORDER SUMMARY ---
..... Patient: ANIL GUPTA OrderSheet [facility] VisitID: [id number] [place] [address] 21y, F Registration Date/Time: 08/29/2016 ORDER SHEET Weight: 61.2 kg (stated) Allergies: No Known Drug Allergy GENERAL ORDERS: CBC w Diff Urgent (18:11 08/29/2016 Jory CLAROS) (Ack 18:14 Magaly) (18:40 Chacha R.N.) CMP Urgent (18:11 08/29/2016 Jory CLAROS) (Ack 18:14 Magaly) (18:40 Chacha R.N.) UA-Culture if indicated Urgent (18:08/29/2016 Jory CLAROS) (18:13 Chacha R.N.) (Ack 18:14 Magaly) Amylase Urgent (18:08/29/2016 Jory CLAROS) (Ack 18:14 Magaly) (18:40 Chacha R.N.) Lipase Urgent (18:11 08/29/2016 Jory CLAROS) (Ack 18:14 Magaly) (18:40 Chacha R.N.) Urine Urgent (18:11 08/29/2016 Jory CLAROS) (18:13 Chacha R.N.) (Ack 18:14 Magaly) MEDICATION ORDERS: Levaquin PO 750 mg (NOW) (19:32 08/29/2016 Jory CLAROS) (Ack 19:35 DDean R.N.) (19:46 DDean R.N.) Hydrocodone-APAP PO 5/325 mg (NOW) (19:50 08/29/2016 DDean R.N. per protocol) (19:51 DDean R.N.) IV FLUIDS: IV Saline Lock (18:11 08/29/2016 Jory CLAROS) (Ack 18:13 Chacha R.N.) (18:40 Chacha R.N.) ORDER SHEET NOTES: [Electronically signed by Maki Cox R.N. (19:57 08/29/2016)] [Electronically signed by Ricardo Russo MD (09:30 08/30/2016)] [Electronically locked/signed by Maki Cox R.N. (19:57 08/29/2016)]
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
--- NOTE | 2016-08-30 09:30 | ED DISCHARGE INSTRUCTIONS ---
Patient: ANIL GUPTA General Instructions Formerly [facility] VisitID: [id number] [address], [place] [address] 21y, F Registration Date/Time: 08/29/2016 Acute pyelonephritis INSTRUCTIONS No driving or operating machinery while taking medication. Do not work until released. Drink plenty of fluids. Warnings: Further evaluation is necessary. GENERAL WARNINGS: Return or contact your physician immediately if your condition worsens or changes unexpectedly, if not improving as expected, or if other problems arise. Prescription Medications: Hydrocodone/APAP 5mg / 325mg: take 1-2 orally every 6 hours. Dispense fifteen (15). No refill. Cipro 500 mg: take 1 tab orally every 12 hours for 10 days. No refills. Substitution is permissible. (18 pills to finish the course started in the emergency room. Begin this on the evening of 08/30/2016) Understanding of the discharge instructions verbalized by patient. Follow-up with: [facility], , , [address], , [place], [address] Follow up in four. Call for the next available appointment. ADDITIONAL INFORMATION Kidney Infection [Adult, Female] An infection of the kidney is also called "pyelonephritis". It usually starts as a bladder infection ("cystitis") which spreads to the kidneys. Pyelonephritis is more serious than a bladder infection. It can cause severe illness if not treated properly. The usual symptoms include an aching pain in the back, side or lower abdomen. Other symptoms may include fever, chills, nausea, vomiting, an urge to urinate and a burning sensation when passing urine. Home Care: Stay home from work or school. Rest in bed until your fever breaks and you are feeling better. Drink lots of fluid (at least 6-8 glasses a day, unless you must restrict fluids for other medical reasons). This will force the medicine into your urinary system and flush the bacteria out of your body. Avoid sexual intercourse until you have finished all of your medicine and your symptoms have gone away. Avoid caffeine, alcohol and spicy foods which may irritate the kidney and bladder. You may use acetaminophen (Tylenol) or ibuprofen (Motrin, Advil) to control pain, unless another pain medicine was prescribed. [NOTE: If you have chronic liver or kidney disease or ever had a stomach ulcer or GI bleeding, talk with your doctor before using these medicines.] Follow Up with your doctor or as advised by our staff for a repeat urine test in 10 days. This will ensure that your infection is fully cleared. [NOTE: If you had an X-ray or CT scan, it will be reviewed by a specialist. You will be notified of any new findings that may affect your care.] Get Prompt Medical Attention if any of the following occur: Fever over 100.4F (38.0C) after 48 hours of treatment No improvement by the third day of treatment Increasing back or abdominal pain Repeated vomiting or inability to take oral medicine Weakness, dizziness or fainting Hydrocodone Bitartrate, Acetaminophen Oral tablet What is this medicine? ACETAMINOPHEN; HYDROCODONE (a set a ALEX carie fen; esdras droe KOE done) is a pain reliever. It is used to treat mild to moderate pain. How should I use this medicine? Take this medicine by mouth. Swallow it with a full glass of water. Follow the directions on the prescription label. If the medicine upsets your stomach, take the medicine with food or milk. Do not take more than you are told to take. Talk to your special effects designer regarding the use of this medicine in children. This medicine is not approved for use in children. What side effects may I notice from receiving this medicine? Side effects that you should report to your doctor or health daycare manager as soon as possible: allergic reactions like skin rash, itching or hives, swelling of the face, lips, or tongue breathing problems confusion feeling faint or lightheaded, falls stomach pain yellowing of the eyes or skin Side effects that usually do not require medical attention (report to your doctor or health daycare manager if they continue or are bothersome): nausea, vomiting stomach upset What may interact with this medicine? alcohol antihistamines isoniazid medicines for depression, anxiety, or psychotic disturbances medicines for sleep muscle relaxants naltrexone narcotic medicines (opiates) for pain phenobarbital ritonavir tramadol What if I miss a dose? If you miss a dose, take it as soon as you can. If it is almost time for your next dose, take only that dose. Do not take double or extra doses. Where should I keep my medicine? Keep out of the reach of children. This medicine can be abused. Keep your medicine in a safe place to protect it from theft. Do not share this medicine with anyone. Selling or giving away this medicine is dangerous and against the law. Store at room temperature between 15 and 30 degrees C (59 and 86 degrees F). Protect from light. Keep container tightly closed. Throw away any unused medicine after the expiration date. Discard unused medicine and used packaging carefully. Pets and children can be harmed if they find used or lost packages. What should I tell my health care provider before I take this medicine? They need to know if you have any of these conditions: brain tumor Crohn's disease, inflammatory bowel disease, or ulcerative colitis drink more than 3 alcohol-containing drinks per day drug abuse or addiction head injury heart or circulation problems kidney disease or problems going to the bathroom liver disease lung disease, asthma, or breathing problems an unusual or allergic reaction to acetaminophen, hydrocodone, other opioid analgesics, other medicines, foods, dyes, or preservatives or trying to get breast-feeding What should I watch for while using this medicine? Tell your doctor or health daycare manager if your pain does not go away, if it gets worse, or if you have new or a different type of pain. You may develop tolerance to the medicine. Tolerance means that you will need a higher dose of the medicine for pain relief. Tolerance is normal and is expected if you take the medicine for a long time. Do not suddenly stop taking your medicine because you may develop a severe reaction. Your body becomes used to the medicine. This does NOT mean you are addicted. Addiction is a behavior related to getting and using a drug for a non-medical reason. If you have pain, you have a medical reason to take pain medicine. Your doctor will tell you how much medicine to take. If your doctor wants you to stop the medicine, the dose will be slowly lowered over time to avoid any side effects. You may get drowsy or dizzy when you first start taking the medicine or change doses. Do not drive, use machinery, or do anything that may be dangerous until you know how the medicine affects you. Stand or sit up slowly. There are different types of narcotic medicines (opiates) for pain. If you take more than one type at the same time, you may have more side effects. Give your health care provider a list of all medicines you use. Your doctor will tell you how much medicine to take. Do not take more medicine than directed. Call emergency for help if you have problems breathing. The medicine will cause constipation. Try to have a bowel movement at least every 2 to 3 days. If you do not have a bowel movement for 3 days, call your doctor or health daycare manager. Too much acetaminophen can be very dangerous. Do not take Tylenol (acetaminophen) or medicines that contain acetaminophen with this medicine. Many non-prescription medicines contain acetaminophen. Always read the labels carefully. Ciprofloxacin Hydrochloride Oral tablet What is this medicine? CIPROFLOXACIN (sip barrie FLOX a sin) is a quinolone antibiotic. It is used to treat certain kinds of bacterial infections. It will not work for colds, flu, or other viral infections. How should I use this medicine? Take this medicine by mouth with a glass of water. Follow the directions on the prescription label. Take your medicine at regular intervals. Do not take your medicine more often than directed. Take all of your medicine as directed even if you think your are better. Do not skip doses or stop your medicine early. You can take this medicine with food or on an empty stomach. It can be taken with a meal that contains dairy or calcium, but do not take it alone with a dairy product, like milk or yogurt or calcium-fortified juice. A special MedGuide will be given to you by the pharmacist with each prescription and refill. Be sure to read this information carefully each time. Talk to your special effects designer regarding the use of this medicine in children. Special care may be needed. What side effects may I notice from receiving this medicine? Side effects that you should report to your doctor or health daycare manager as soon as possible: - allergic reactions like skin rash, itching or hives, swelling of the face, lips, or tongue - breathing problems - confusion, nightmares or hallucinations - feeling faint or lightheaded, falls - irregular heartbeat - joint, muscle or tendon pain or swelling - pain or trouble passing urine -persistent headache with or without blurred vision - redness, blistering, peeling or loosening of the skin, including inside the mouth - seizure - unusual pain, numbness, tingling, or weakness Side effects that usually do not require medical attention (report to your doctor or health daycare manager if they continue or are bothersome): - diarrhea - nausea or stomach upset - white patches or sores in the mouth What may interact with this medicine? Do not take this medicine with any of the following medications: cisapride droperidol terfenadine tizanidine This medicine may also interact with the following medications: antacids caffeine cyclosporin didanosine (ddI) buffered tablets or powder medicines for diabetes medicines for inflammation like ibuprofen, naproxen methotrexate multivitamins omeprazole phenytoin probenecid sucralfate theophylline warfarin What if I miss a dose? If you miss a dose, take it as soon as you can. If it is almost time for your next dose, take only that dose. Do not take double or extra doses. Where should I keep my medicine? Keep out of the reach of children. Store at room temperature below 30 degrees C (86 degrees F). Keep container tightly closed. Throw away any unused medicine after the expiration date. What should I tell my health care provider before I take this medicine? They need to know if you have any of these conditions: -bone problems -cerebral disease -joint problems -irregular heartbeat -kidney disease -liver disease -myasthenia gravis -seizure disorder -tendon problems -an unusual or allergic reaction to ciprofloxacin, other antibiotics or medicines, foods, dyes, or preservatives - or trying to get -breast-feeding What should I watch for while using this medicine? Tell your doctor or health daycare manager if your symptoms do not improve. Do not treat diarrhea with over the counter products. Contact your doctor if you have diarrhea that lasts more than 2 days or if it is severe and watery. You may get drowsy or dizzy. Do not drive, use machinery, or do anything that needs mental alertness until you know how this medicine affects you. Do not stand or sit up quickly, especially if you are an older patient. This reduces the risk of dizzy or fainting spells. This medicine can make you more sensitive to the sun. Keep out of the sun. If you cannot avoid being in the sun, wear protective clothing and use sunscreen. Do not use sun lamps or tanning beds/booths. Avoid antacids, aluminum, calcium, iron, magnesium, and zinc products for 6 hours before and 2 hours after taking a dose of this medicine. You have been given the following additional information: Pyelonephritis, Female (Adult) Hydrocodone Bitartrate, Acetaminophen Oral tablet Ciprofloxacin Hydrochloride Oral tablet No driving or operating machinery while taking medication. Do not work until released. (Electronically signed by Ricardo Russo MD 08/30/2016 9:30)
--- NOTE | 2016-08-30 09:30 | ED MED RECONCILIATION SUMMARY ---
Patient: ANIL GUPTA Medication Reconciliation Report [facility] VisitID: [id number] [place] [address] 21y, F Registration Date/Time: 08/29/2016 Weight: 61.2 kg Height/Length: 62 in. BMI: 24.7 ALLERGIES: No Known Drug Allergy The patient's Home Medications are listed below: THE FOLLOWING MEDICATIONS NEED TO BE RECONCILED: Baclofen 10 mg, 3x a day Diclofenac Oral 50 mg, prn The source(s) of the original Home Medication information: patient other The following Medications were given to the patient in the Emergency Department: Levaquin [PO] PO 750 mg, administered: 08/29/2016 7:33:00 PM Hydrocodone-APAP [PO] PO 1 tab, administered: 08/29/2016 7:40:00 PM The following Medications were prescribed to the patient: Hydrocodone/APAP 5mg / 325mg: take 1-2 orally every 6 hours. Dispense fifteen (15). No refill. -- Ricardo Russo MD Cipro 500 mg: take 1 tab orally every 12 hours for 10 days. No refills. Substitution is permissible.(18 pills to finish the course started in the emergency room. Begin this on the evening of 08/30/2016) -- Ricardo Russo MD
--- NOTE | 2016-08-30 09:30 | ED DISCHARGE INSTRUCTIONS ---
Patient: ANIL GUPTA General Instructions [facility] VisitID: [id number] [address], [place] [address] 21y, F Registration Date/Time: 08/29/2016 Acute pyelonephritis INSTRUCTIONS No driving or operating machinery while taking medication. Do not work until released. Drink plenty of fluids. Warnings: Further evaluation is necessary. GENERAL WARNINGS: Return or contact your physician immediately if your condition worsens or changes unexpectedly, if not improving as expected, or if other problems arise. Prescription Medications: Hydrocodone/APAP 5mg / 325mg: take 1-2 orally every 6 hours. Dispense fifteen (15). No refill. Cipro 500 mg: take 1 tab orally every 12 hours for 10 days. No refills. Substitution is permissible. (18 pills to finish the course started in the emergency room. Begin this on the evening of 08/30/2016) Understanding of the discharge instructions verbalized by patient. Follow-up with: [facility], , , [address], , [place], [id number] Follow up in four. Call for the next available appointment. ADDITIONAL INFORMATION Kidney Infection [Adult, Female] An infection of the kidney is also called "pyelonephritis". It usually starts as a bladder infection ("cystitis") which spreads to the kidneys. Pyelonephritis is more serious than a bladder infection. It can cause severe illness if not treated properly. The usual symptoms include an aching pain in the back, side or lower abdomen. Other symptoms may include fever, chills, nausea, vomiting, an urge to urinate and a burning sensation when passing urine. Home Care: Stay home from work or school. Rest in bed until your fever breaks and you are feeling better. Drink lots of fluid (at least 6-8 glasses a day, unless you must restrict fluids for other medical reasons). This will force the medicine into your urinary system and flush the bacteria out of your body. Avoid sexual intercourse until you have finished all of your medicine and your symptoms have gone away. Avoid caffeine, alcohol and spicy foods which may irritate the kidney and bladder. You may use acetaminophen (Tylenol) or ibuprofen (Motrin, Advil) to control pain, unless another pain medicine was prescribed. [NOTE: If you have chronic liver or kidney disease or ever had a stomach ulcer or GI bleeding, talk with your doctor before using these medicines.] Follow Up with your doctor or as advised by our staff for a repeat urine test in 10 days. This will ensure that your infection is fully cleared. [NOTE: If you had an X-ray or CT scan, it will be reviewed by a specialist. You will be notified of any new findings that may affect your care.] Get Prompt Medical Attention if any of the following occur: Fever over 100.4F (38.0C) after 48 hours of treatment No improvement by the third day of treatment Increasing back or abdominal pain Repeated vomiting or inability to take oral medicine Weakness, dizziness or fainting Hydrocodone Bitartrate, Acetaminophen Oral tablet What is this medicine? ACETAMINOPHEN; HYDROCODONE (a set a ALEX carie fen; esdras droe KOE done) is a pain reliever. It is used to treat mild to moderate pain. How should I use this medicine? Take this medicine by mouth. Swallow it with a full glass of water. Follow the directions on the prescription label. If the medicine upsets your stomach, take the medicine with food or milk. Do not take more than you are told to take. Talk to your merchandise support associate regarding the use of this medicine in children. This medicine is not approved for use in children. What side effects may I notice from receiving this medicine? Side effects that you should report to your doctor or health care services manager as soon as possible: allergic reactions like skin rash, itching or hives, swelling of the face, lips, or tongue breathing problems confusion feeling faint or lightheaded, falls stomach pain yellowing of the eyes or skin Side effects that usually do not require medical attention (report to your doctor or health care services manager if they continue or are bothersome): nausea, vomiting stomach upset What may interact with this medicine? alcohol antihistamines isoniazid medicines for depression, anxiety, or psychotic disturbances medicines for sleep muscle relaxants naltrexone narcotic medicines (opiates) for pain phenobarbital ritonavir tramadol What if I miss a dose? If you miss a dose, take it as soon as you can. If it is almost time for your next dose, take only that dose. Do not take double or extra doses. Where should I keep my medicine? Keep out of the reach of children. This medicine can be abused. Keep your medicine in a safe place to protect it from theft. Do not share this medicine with anyone. Selling or giving away this medicine is dangerous and against the law. Store at room temperature between 15 and 30 degrees C (59 and 86 degrees F). Protect from light. Keep container tightly closed. Throw away any unused medicine after the expiration date. Discard unused medicine and used packaging carefully. Pets and children can be harmed if they find used or lost packages. What should I tell my health care provider before I take this medicine? They need to know if you have any of these conditions: brain tumor Crohn's disease, inflammatory bowel disease, or ulcerative colitis drink more than 3 alcohol-containing drinks per day drug abuse or addiction head injury heart or circulation problems kidney disease or problems going to the bathroom liver disease lung disease, asthma, or breathing problems an unusual or allergic reaction to acetaminophen, hydrocodone, other opioid analgesics, other medicines, foods, dyes, or preservatives or trying to get breast-feeding What should I watch for while using this medicine? Tell your doctor or health care services manager if your pain does not go away, if it gets worse, or if you have new or a different type of pain. You may develop tolerance to the medicine. Tolerance means that you will need a higher dose of the medicine for pain relief. Tolerance is normal and is expected if you take the medicine for a long time. Do not suddenly stop taking your medicine because you may develop a severe reaction. Your body becomes used to the medicine. This does NOT mean you are addicted. Addiction is a behavior related to getting and using a drug for a non-medical reason. If you have pain, you have a medical reason to take pain medicine. Your doctor will tell you how much medicine to take. If your doctor wants you to stop the medicine, the dose will be slowly lowered over time to avoid any side effects. You may get drowsy or dizzy when you first start taking the medicine or change doses. Do not drive, use machinery, or do anything that may be dangerous until you know how the medicine affects you. Stand or sit up slowly. There are different types of narcotic medicines (opiates) for pain. If you take more than one type at the same time, you may have more side effects. Give your health care provider a list of all medicines you use. Your doctor will tell you how much medicine to take. Do not take more medicine than directed. Call emergency for help if you have problems breathing. The medicine will cause constipation. Try to have a bowel movement at least every 2 to 3 days. If you do not have a bowel movement for 3 days, call your doctor or health care services manager. Too much acetaminophen can be very dangerous. Do not take Tylenol (acetaminophen) or medicines that contain acetaminophen with this medicine. Many non-prescription medicines contain acetaminophen. Always read the labels carefully. Ciprofloxacin Hydrochloride Oral tablet What is this medicine? CIPROFLOXACIN (sip barrie FLOX a sin) is a quinolone antibiotic. It is used to treat certain kinds of bacterial infections. It will not work for colds, flu, or other viral infections. How should I use this medicine? Take this medicine by mouth with a glass of water. Follow the directions on the prescription label. Take your medicine at regular intervals. Do not take your medicine more often than directed. Take all of your medicine as directed even if you think your are better. Do not skip doses or stop your medicine early. You can take this medicine with food or on an empty stomach. It can be taken with a meal that contains dairy or calcium, but do not take it alone with a dairy product, like milk or yogurt or calcium-fortified juice. A special MedGuide will be given to you by the pharmacist with each prescription and refill. Be sure to read this information carefully each time. Talk to your merchandise support associate regarding the use of this medicine in children. Special care may be needed. What side effects may I notice from receiving this medicine? Side effects that you should report to your doctor or health care services manager as soon as possible: - allergic reactions like skin rash, itching or hives, swelling of the face, lips, or tongue - breathing problems - confusion, nightmares or hallucinations - feeling faint or lightheaded, falls - irregular heartbeat - joint, muscle or tendon pain or swelling - pain or trouble passing urine -persistent headache with or without blurred vision - redness, blistering, peeling or loosening of the skin, including inside the mouth - seizure - unusual pain, numbness, tingling, or weakness Side effects that usually do not require medical attention (report to your doctor or health care services manager if they continue or are bothersome): - diarrhea - nausea or stomach upset - white patches or sores in the mouth What may interact with this medicine? Do not take this medicine with any of the following medications: cisapride droperidol terfenadine tizanidine This medicine may also interact with the following medications: antacids caffeine cyclosporin didanosine (ddI) buffered tablets or powder medicines for diabetes medicines for inflammation like ibuprofen, naproxen methotrexate multivitamins omeprazole phenytoin probenecid sucralfate theophylline warfarin What if I miss a dose? If you miss a dose, take it as soon as you can. If it is almost time for your next dose, take only that dose. Do not take double or extra doses. Where should I keep my medicine? Keep out of the reach of children. Store at room temperature below 30 degrees C (86 degrees F). Keep container tightly closed. Throw away any unused medicine after the expiration date. What should I tell my health care provider before I take this medicine? They need to know if you have any of these conditions: -bone problems -cerebral disease -joint problems -irregular heartbeat -kidney disease -liver disease -myasthenia gravis -seizure disorder -tendon problems -an unusual or allergic reaction to ciprofloxacin, other antibiotics or medicines, foods, dyes, or preservatives - or trying to get -breast-feeding What should I watch for while using this medicine? Tell your doctor or health care services manager if your symptoms do not improve. Do not treat diarrhea with over the counter products. Contact your doctor if you have diarrhea that lasts more than 2 days or if it is severe and watery. You may get drowsy or dizzy. Do not drive, use machinery, or do anything that needs mental alertness until you know how this medicine affects you. Do not stand or sit up quickly, especially if you are an older patient. This reduces the risk of dizzy or fainting spells. This medicine can make you more sensitive to the sun. Keep out of the sun. If you cannot avoid being in the sun, wear protective clothing and use sunscreen. Do not use sun lamps or tanning beds/booths. Avoid antacids, aluminum, calcium, iron, magnesium, and zinc products for 6 hours before and 2 hours after taking a dose of this medicine. You have been given the following additional information: Pyelonephritis, Female (Adult) Hydrocodone Bitartrate, Acetaminophen Oral tablet Ciprofloxacin Hydrochloride Oral tablet No driving or operating machinery while taking medication. Do not work until released. (Electronically signed by Ricardo Russo MD 08/30/2016 9:30)
--- NOTE | 2016-08-30 09:30 | ED MAR SUMMARY ---
..... Medication Administration Record [facility] [address] [place] [address] Patient: ANIL GUPTA Visit ID: [id number] 21y, F Weight: 61.2 kg Height/Length: 62 in BMI: 24.7 ALLERGIES: No Known Drug Allergy Given 19:33 08/29/2016 Maki Cox, R.N. Medication Administered: LEVAQUIN [PO] (LEVOFLOXACIN), Dose: 750 mg Capsules PO. Medication Ordered: Levaquin PO 750 mg (NOW). Given 19:40 08/29/2016 Maki Cox, R.N. Medication Administered: HYDROCODONE-APAP [PO] (HYDROCODONE-ACETAMINOPHEN), Dose: 1 tab 5/325 mg Tablets PO. Medication Ordered: Hydrocodone-APAP PO 5/325 mg (NOW).
--- NOTE | 2016-08-30 09:30 | ED MAR SUMMARY ---
..... Medication Administration Record [facility] [address] [place] [address] Patient: ANIL GUPTA Visit ID: [id number] 21y, F Weight: 61.2 kg Height/Length: 62 in BMI: 24.7 ALLERGIES: No Known Drug Allergy Given 19:33 08/29/2016 Maki Cox, R.N. Medication Administered: LEVAQUIN [PO] (LEVOFLOXACIN), Dose: 750 mg Capsules PO. Medication Ordered: Levaquin PO 750 mg (NOW). Given 19:40 08/29/2016 Maki Cox, R.N. Medication Administered: HYDROCODONE-APAP [PO] (HYDROCODONE-ACETAMINOPHEN), Dose: 1 tab 5/325 mg Tablets PO. Medication Ordered: Hydrocodone-APAP PO 5/325 mg (NOW).
--- NOTE | 2016-08-30 09:30 | ED MED RECONCILIATION SUMMARY ---
Patient: ANIL GUPTA Medication Reconciliation Report [facility] VisitID: [id number] [place] [address] 21y, F Registration Date/Time: 08/29/2016 Weight: 61.2 kg Height/Length: 62 in. BMI: 24.7 ALLERGIES: No Known Drug Allergy The patient's Home Medications are listed below: THE FOLLOWING MEDICATIONS NEED TO BE RECONCILED: Baclofen 10 mg, 3x a day Diclofenac Oral 50 mg, prn The source(s) of the original Home Medication information: patient other The following Medications were given to the patient in the Emergency Department: Levaquin [PO] PO 750 mg, administered: 08/29/2016 7:33:00 PM Hydrocodone-APAP [PO] PO 1 tab, administered: 08/29/2016 7:40:00 PM The following Medications were prescribed to the patient: Hydrocodone/APAP 5mg / 325mg: take 1-2 orally every 6 hours. Dispense fifteen (15). No refill. -- Ricardo Russo MD Cipro 500 mg: take 1 tab orally every 12 hours for 10 days. No refills. Substitution is permissible.(18 pills to finish the course started in the emergency room. Begin this on the evening of 08/30/2016) -- Ricardo Russo MD
== END 2016-08-29 19:50 | disposition home or self-care (01) ==
LOC: ED SRH 17:45
DX: N10 Acute pyelonephritis (principal); F17.210 Nicotine dependence, cigarettes, uncomplicated
CPT/HCPCS: 90004; 90100; 90148; 90469; 92235; 92530; 93070; 95059